=== PATIENT | male | born 1950 | race Caucasian/White ===

== ENCOUNTER → 2020-08-25 | Outpatient (CLI) | payer MEDICARE ==
[~2020-08-25] MED LIST: ASPIRIN 32325 MG/TAB PO; KEFLEX PO; LIPITOR20 MG PO; LIPITOR80 MG PO; LISINOPRIL2.5 MG PO; METOPROLOL25 MG PO; NO HOME MEDICATIONS; PLAVIX 75MG TAB75 MG PO
== END ==
LOC: COL.RAD 11:12
DX: K57.30 Diverticulosis of large intestine without perforation or abscess without bleeding (principal); N40.0 Benign prostatic hyperplasia without lower urinary tract symptoms
CPT/HCPCS: Q9967

== ENCOUNTER → 2020-10-06 | Outpatient (CLI) | payer MEDICARE, OTHER ==
[~2020-10-06] MED LIST changes: -LISINOPRIL2.5 MG PO; +LOPRESSOR 225 MG/TAB PO; -METOPROLOL25 MG PO; +MOTRIN 600600 MG/TAB PO; +NORCO 325 MG-51 TAB PO; +ZESTRIL2.5 MG PO
== END ==
LOC: COL.RAD 10:30
DX: C83.09 Small cell B-cell lymphoma, extranodal and solid organ sites (principal)
CPT/HCPCS: Q9967

== ENCOUNTER → 2021-02-11 | Outpatient (CLI) | payer MEDICARE, OTHER | LOC: COL.RAD 09:40 | DX: C85.90 Non-Hodgkin lymphoma, unspecified, unspecified site (principal) | CPT/HCPCS: Q9967 ==

== ENCOUNTER → 2023-08-28 | Outpatient (CLI) | payer MEDICARE, OTHER | LOC: COL.RAD 13:51 | DX: N40.0 Benign prostatic hyperplasia without lower urinary tract symptoms (principal); R59.0 Localized enlarged lymph nodes; R31.9 Hematuria, unspecified ==

== ENCOUNTER → 2023-10-02 | Outpatient (CLI) | payer MEDICARE, OTHER ==
[~2023-10-02] MED LIST changes: +Barium Sulfate 2% Oral Susp 450 ML X 2 BOTTLES PO SCH; +Iohexol 300 - 100 ML VIAL IV ONE; +NS 100 ML IV SCH
== END ==
LOC: COL.RAD 12:52
DX: C83.09 Small cell B-cell lymphoma, extranodal and solid organ sites (principal)
CPT/HCPCS: Q9967

== ENCOUNTER → 2024-05-08 | Outpatient (CLI) | payer MEDICARE ==
[~2024-05-08] MED LIST changes: -Barium Sulfate 2% Oral Susp 450 ML X 2 BOTTLES PO SCH; -Iohexol 300 - 100 ML VIAL IV ONE; -NS 100 ML IV SCH
[2024-05-08 20:05] LABS: LYMPHOCYTE 62 % (20.0-51.0); NEUTROPHILS 23 % (42.0-75.2)
[2024-05-08 20:08] LABS: PLATELET ESTIMATE NORMAL (NORMAL)
[2024-05-08 20:13] LABS: ANISOCYTOSIS 1+
== END ==
LOC: COL.LAB 18:42
PROVIDERS: Family Medicine
DX: C83.09 Small cell B-cell lymphoma, extranodal and solid organ sites (principal)

== ENCOUNTER → 2024-05-13 | Outpatient (CLI) | payer MEDICARE ==
[2024-05-13 08:28] LABS: MEAN CELL VOLUME 106 fl (80.0-100.0); MEAN CORPUSCULAR HGB CONC 33 g/dl (33.0-37.0); MEAN PLATELET VOLUME 8.7 fl (7.4-10.4); PLATELET COUNT 265 K/mm3 (130-400); RED BLOOD COUNT 2.61 M/mm3 (4.20-5.60); REDCELL DISTRIBUTION WIDTH-CV 17.3 % (11.5-14.5)
[2024-05-13 08:37] LABS: HEMATOCRIT 27.7 % (42.0-52.0); HEMOGLOBIN 9.1 g/dl (13.5-18.0); MEAN CORPUSCULAR HEMOGLOBIN 35 pg (27-31)
[2024-05-13 10:32] LABS: BAND 2 % (0-10); LYMPHOCYTE 75 % (20.0-51.0); NEUTROPHILS 10 % (42.0-75.2)
[2024-05-13 10:33] LABS: MYELOCYTE 2 % (0-0)
== END ==
LOC: COL.LAB 07:51
PROVIDERS: Internal Medicine
DX: C83.09 Small cell B-cell lymphoma, extranodal and solid organ sites (principal)